=== PATIENT | male | born 2000 | race Caucasian/White ===

== ENCOUNTER → 2020-10-13 02:54 | Outpatient (CLI) | payer BC, SELFPAY ==
[2020-10-13 23:33] LABS: SARS-CoV-2 RNA PCR Negative
== END ==
PROVIDERS: PCP Internal Medicine; Visit Provider Surgery
DX: Z01.812 Encounter for preprocedural laboratory examination (principal); Z20.822 Contact with and (suspected) exposure to COVID-19
CPT/HCPCS: C9803; U0003; U0005

== ENCOUNTER 2020-10-16 02:21 | Day surgery (SDC) | payer BC, SELFPAY ==
[2020-10-12 13:40] VITALS: BMI 20.4
--- NOTE | 2020-10-15 16:06 | WPDANESEPPF ---
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 Patient Data Age: 20 Gender: M Height: 1.75 m Weight: 62.72 kg Allergies Allergy/AdvReac Type Severity Reaction Status Date / Time sulfamethoxazole Allergy Mild eye Verified 10/16/20 11:37 [From Bactrim] itching, fevers, body achs, and nausea trimethoprim [From Bactrim] Allergy Mild eye Verified 10/16/20 11:37 itching, fevers, body achs, and nausea cefdinir Allergy Unknown Hives Verified 10/16/20 11:37 Home Medications Medication Instructions Recorded Confirmed Type No Home Medications 09/25/20 10/16/20 History Patient hx anesthesia problems: none Family hx anesthesia problems: none PMFSH Past Medical History Medical History BMI 20.0-20.9, adult Encounter for annual general medical examination without abnormal findings in adult Encounter to establish care Family history of thyroid cancer History of anxiety History of fracture of right ankle Internal hemorrhoid Screening for diabetes mellitus Thrombosed hemorrhoids Surgical History Surgical History History of incision and drainage perirectal abscess 09/10/20 History of placement of ear tubes History of wisdom tooth extraction Hx of tonsillectomy 2009 Family History Family History Father Thyroid cancer Social History Social History Smoking status: Current every day smoker Tobacco type: e-cigarettes/vaping Additional smoking assessment comments: STATES E-CIGARETTES/VAPING 8 YRS Alcohol intake: never Substance use: never Substance use type: does not use Living arrangements: with family Spiritual care concerns: No Anes - Eval Final PreProcedure Day of Procedure 10/15/20 16:06 Patient weight: normal Heart: regular rate and rhythm Lungs: clear to auscultation and normal air movement Airway: Mallampati scale class II Neurological: alert and oriented Last oral intake: >/= 8 hours ASA classification: II Emergent: no Anesthetic plan: proceed Anesthesia type and monitoring: general ETT Informed Consent: The patient's anesthetic plan and its attendant risks and benefits were discussed with the patient/family/POA. Questions were solicited and answers provided to the satisfaction of the patient/family/POA.
[2020-10-16] VITALS (9 sets, daily range): BP systolic 95–123; BP diastolic 41–83; PULSE 57–82; RESP 12–20; TEMP 36.2–36.9; O2SAT 99–100
[2020-10-16] MEDS: LACTATED RINGERS 1,000 ML 30 ML IV CONT ×2 (11:20→15:05)
[2020-10-16] MEDS: ACETAMINOPHEN 500 MG TABLET 1000 MG PO (11:43)
[2020-10-16] MEDS: KETOROLAC 15 MG/ML VIAL (*BKC) IV PUSH (12:48)
--- NOTE | 2020-10-16 14:10 | WPDHPUPDATE1 ---
History and Physical Update Update Date/Time: 10/16/20 14:10 History and Physical has been reviewed, including an updated exam of the patient. There are NO changes in the patient's condition. Risks, benefits, and alternatives have been discussed and questions answered. Patient agrees to proceed with procedure.
[2020-10-16] MEDS: CLINDAMYCIN 900 MG/D5W 50 ML 900 MG/50 ML PIGGYBACK 50 MG IVPB (14:24)
--- NOTE | 2020-10-16 15:04 | P.OP_ITS ---
Procedure Note - Detailed Date of procedure: 10/16/20 Pre-op diagnosis: Fistula In Ano Post-op diagnosis: same Procedure performed: Rectal exam under anesthesia with intersphincteric anal fistulotomy Description of procedure: * Procedure as well as risks, benefits, and alternatives were discussed with the patient. Written consent was obtained and placed in chart prior to procedure. Patient was brought back to surgical suite. He was placed supine in his hospital stretcher. Time-out was done to confirm patient and procedure. He was then intubated by the anesthesia department. He was then repositioned into prone cele-knife position. His perirectal area was prepped and draped in sterile fashion using Betadine prep. Digital rectal exam was initially performed. A Hill-Villaseñor anoscope was inserted and the anal rectal canal was carefully inspected. No immediate abnormalities were noted. The left anterior perianal skin fistula opening was identified and this was probed with a small lacrimal probe. This advanced along the left lateral perianal skin more posteriorly towards the posterior midline. I continued to follow this with the probe and had to open up the incision along this fistula tract along the way to allow for the curved tract to reach the midline. The probe was continued to be advanced along the fistula tract, and eventually I was able to identify the internal opening in the posterior midline. The entire tract was then opened up using a 15 blade scalpel over the skin and then electrocautery through the subcu space. The fistula tract appeared to go through a few sphincter muscle fibers but was very shallow and did not appear to be transsphincteric. Once the fistula tract was completely opened, I cleaned out any chronic granulation tissue with electrocautery and irrigation. One final inspection was made around the area and no other abnormalities were noted. Exparel was infiltrated locally around the entire area. The anoscope was then removed. Xeroform gauze was applied over the incision followed by 4 x 4 gauze and mesh underwear. The patient was then awakened from anesthesia, extubated, and transferred to recovery. Anesthesia: GETA and local (Exparel) Surgeon: Darian Schilling DO Estimated blood loss (mL): 5 Pathology: none sent Complications: No immediate complications Condition: stable Disposition: same day Findings: This is a 20-year-old man who presented with an anal fistula. He initially presented a couple months ago with a perirectal abscess. Incision and drainage was performed in the office and he seemed to improve from this. As he healed, the wound never completely closed and he continued to have intermittent drainage. Discussions were made with the patient that he likely has an anal fistula, and decision was made to proceed with rectal exam under anesthesia with possible anal fistulotomy. Rectal exam under anesthesia was performed. In the left anterior location there was a perianal skin opening from the fistula tract. The probe was inserted through the skin opening and this appeared advanced along the lateral perianal skin. As I tracked this more posteriorly it appeared to bend towards the midline. In the posterior midline it appeared to enter into the anal canal through a small opening. The tract was carefully inspected and appeared to be intersphincteric and did not appear to involve full-thickness sphincter muscle fibers. The incision was carried out over the fistula tract to open it up. This was a relatively long tract measuring about 4 cm, but it appeared to be shallow. No specimens were obtained for pathology. No other perirectal abnormalities were noted.
== END 2020-10-16 17:05 | disposition home or self-care (01) ==
PROVIDERS: PCP Internal Medicine; Visit Provider Surgery
PROC: (CPT 46275; principal; 2020-10-16 13:30)
DX: K60.3 Anal fistula (principal); F17.290 Nicotine dependence, other tobacco product, uncomplicated
CPT/HCPCS: 46275; A9270; C9290; J0330; J1100; J1885; J2250; J2405; J2704; J3010; J7120

== ENCOUNTER → 2021-04-05 02:34 | Outpatient (CLI) | payer BC, SELFPAY ==
[2021-04-05 12:37] LABS: Influenza Control Positive
[2021-04-05 20:12] LABS: SARS-CoV-2 RNA PCR Positive
== END ==
PROVIDERS: PCP Internal Medicine; Visit Provider Internal Medicine
DX: R68.89 Other general symptoms and signs (principal); U07.1 COVID-19
CPT/HCPCS: 36415; 87804; C9803; U0003; U0005

== ENCOUNTER 2021-04-25 16:28 | Outpatient (CLI) | payer BC, SELFPAY ==
--- NOTE | ~2021-04-25 | XR_ITS ---
EXAMINATION: XR chest 2V 04/25/2021 16:50 INDICATION: Shortness of breath and cough PROCEDURE: 2 view chest COMPARISON: No prior studies for comparison. FINDINGS: The lungs are clear. The cardiomediastinal silhouette is within normal limits. There are no pleural effusions. There is no pneumothorax suspected. IMPRESSION: 1: NO ACUTE CARDIOPULMONARY DISEASE. Reviewed, dictated and finalized at location A.
[2021-04-25 16:57] LABS: Basophils Percent Auto 0.5 % (0.2-1.2); Eosinophils Absolute Auto 0.2 K/mm3 (0-0.3); Eosinophils Percent Auto 3.2 % (0-4.4); Hematocrit 43.7 % (42.0-52.0); Hemoglobin 14.8 g/dL (14.0-18.0); Immature Granulocyte Absolute 0.05 K/mm3 (0.00-0.031); Immature Granulocyte Percent A 0.9 % (0-0.5); Lymphocytes Absolute Auto 1.07 K/mm3 (0.9-3.2); Lymphocytes Percent Auto 18.3 % (18.3-44.2); Mean Corpuscular HGB Conc 33.9 g/dl (32-36); Mean Corpuscular Hemoglobin 29.9 pg (26-34); Mean Corpuscular Volume 88.3 fl (80-100); Mean Platelet Volume 10.9 fl (7.4-10.4); Monocytes Absolute Auto 0.8 K/mm3 (0.1-0.6); Monocytes Percent Auto 14.3 % (2.6-8.5); Neutrophils Absolute Auto 3.7 K/mm3 (1.3-6.7); Neutrophils Percent Auto 62.8 % (45.5-73.1); Platelet Count Result 162 k/mm3 (150-375); Red Blood Count 4.95 M/mm3 (4.6-6.20); Red Cell Distribution Width 12.1 % (11.5-14.5); White Blood Count 5.9 K/mm3 (4.5-10.0)
== END 2021-04-25 16:29 | disposition home or self-care (01) ==
LOC: ANHLAB 16:31
PROVIDERS: PCP Internal Medicine; Visit Provider Internal Medicine
DX: R06.02 Shortness of breath (principal); R05 Cough
CPT/HCPCS: 36415; 71046; 85025

== ENCOUNTER 2021-04-26 09:02 | Outpatient (CLI) | payer BC, SELFPAY ==
[2021-04-26 09:55] LABS: Influenza Control Positive
== END 2021-04-26 09:03 | disposition home or self-care (01) ==
PROVIDERS: PCP Internal Medicine; Visit Provider Internal Medicine
DX: R05 Cough (principal); R11.2 Nausea with vomiting, unspecified; R52 Pain, unspecified; R06.02 Shortness of breath
CPT/HCPCS: 87804

== ENCOUNTER 2021-07-10 11:14 | Outpatient (CLI) | payer BC, SELFPAY ==
[2021-07-10 12:30] LABS: Basophils Percent Auto 0.6 % (0.2-1.2); Eosinophils Absolute Auto 0.4 K/mm3 (0-0.3); Eosinophils Percent Auto 7.5 % (0-4.4); Hematocrit 42.9 % (42.0-52.0); Hemoglobin 14.7 g/dL (14.0-18.0); Immature Granulocyte Absolute 0.04 K/mm3 (0.00-0.031); Immature Granulocyte Percent A 0.7 % (0-0.5); Lymphocytes Absolute Auto 1.54 K/mm3 (0.9-3.2); Lymphocytes Percent Auto 28.8 % (18.3-44.2); Mean Corpuscular HGB Conc 34.3 g/dl (32-36); Mean Corpuscular Hemoglobin 30.7 pg (26-34); Mean Corpuscular Volume 89.6 fl (80-100); Mean Platelet Volume 11.4 fl (7.4-10.4); Monocytes Absolute Auto 0.4 K/mm3 (0.1-0.6); Monocytes Percent Auto 7.1 % (2.6-8.5); Neutrophils Percent Auto 55.3 % (45.5-73.1); Platelet Count Result 166 k/mm3 (150-375); Red Blood Count 4.79 M/mm3 (4.6-6.20); Red Cell Distribution Width 12.2 % (11.5-14.5); White Blood Count 5.4 K/mm3 (4.5-10.0)
[2021-07-10 12:47] LABS: Alanine Aminotransferase 11 U/L (4-50); Albumin Level 4.9 g/dL (3.5-5.1); Alkaline Phosphatase 62 U/L (38-126); Amylase 57 U/L (30-110); Anion Gap 10 mmol/L (8-16); Aspartate Amino Transferase 20 U/L (17-59); Bilirubin,Total 0.9 mg/dL (0.2-1.3); Blood Urea Nitrogen 16 mg/dL (9-20); Calcium 9.7 mg/dL (8.4-10.2); Carbon Dioxide 27 mmol/L (22-30); Chloride 101 mmol/L (98-107); Estimated Glomerular Filt Rate > 60; Glucose 92 mg/dL (65-110); Lipase 36 U/L (23-300); Potassium 4.5 mmol/L (3.4-5.0); Sodium 138 mmol/L (137-145)
== END 2021-07-10 11:15 | disposition home or self-care (01) ==
LOC: ANHLAB 11:16
PROVIDERS: PCP Internal Medicine; Visit Provider Internal Medicine
DX: R11.0 Nausea (principal); R10.9 Unspecified abdominal pain
CPT/HCPCS: 36415; 80053; 82150; 83690; 85025

== ENCOUNTER 2021-07-17 08:33 | Outpatient (CLI) | payer BC, SELFPAY ==
--- NOTE | ~2021-07-17 | XR_ITS ---
EXAMINATION: XR UGI w barium swallow EXAM DATE: 07/17/2021 09:21 INDICATION: Several weeks of nausea in the mornings. TECHNIQUE: Standard single and double contrast barium esophagram and upper GI examination was perform ed by radiologist Estiven Middleton M.D. Pulsed dose reduction fluoroscopy was used with fluoroscopic time of 0.8. The DAP for this procedure was 0.9 Gycm2. A total of 111 images obtained for the exam. Th ere is no prior study for comparison. At the end of exam I offered to answer any questions regarding COVID vaccinations. FINDINGS: The pharynx is symmetric and without evidence of mass lesion or mucosal irregularity. Ther e is no esophageal stricture, diverticulum or mass identified. Gastroesophageal junction is normal i n appearance. Reflux was not demonstrated during this examination. The stomach has a normal appearance without evidence of mass lesion, ulceration or filling defect. T here is normal rugal fold pattern. The duodenum and duodenal sweep are normal in appearance. IMPRESSION: Normal exam. Reviewed, dictated and finalized at location A. [employer] ENG[employer] IMPRESSION: Normal exam.
== END 2021-07-17 08:34 | disposition home or self-care (01) ==
LOC: ANHIMG 08:34
PROVIDERS: PCP Internal Medicine; Visit Provider Internal Medicine
DX: R10.9 Unspecified abdominal pain (principal); R11.0 Nausea
CPT/HCPCS: 74240

== ENCOUNTER → 2021-08-03 00:42 | Outpatient (CLI) | payer BC, SELFPAY ==
[2021-08-03 18:47] LABS: SARS-CoV-2 RNA PCR Negative (Negative)
== END ==
PROVIDERS: PCP Internal Medicine; Visit Provider Internal Medicine Gastroenterology
DX: Z01.812 Encounter for preprocedural laboratory examination (principal); Z20.822 Contact with and (suspected) exposure to COVID-19
CPT/HCPCS: C9803; U0003; U0005

== ENCOUNTER 2021-08-07 00:38 | Day surgery (SDC) | payer BC, SELFPAY ==
[2021-07-26 13:43] VITALS: BMI 18.7
--- NOTE | 2021-08-06 13:40 | PM.HPGS ---
History of Present Illness History of Present Illness Consent: Risks, benefits, and alternatives have been discussed and questions answered. Patient agrees to proceed with procedure. 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 For several weeks he felt gagging when he would try to eat. In the lowers during the meal he would have nausea that would make it feel like it was difficult to swallow. Review of Systems Review of Systems: All systems reviewed & are unremarkable except as noted in HPI and below PMFSH Past Medical History Medical History Adult BMI 19-24 kg/sq m BMI 20.0-20.9, adult Body aches Body mass index (BMI) less than 19 Cellulitis of knee, right Dysphagia Encounter for annual general medical examination without abnormal findings in adult Encounter to establish care Family history of thyroid cancer History of anxiety History of fracture of right ankle Insomnia Internal hemorrhoid Nausea Nausea Personal history of COVID-19 Screening for diabetes mellitus Thrombosed hemorrhoids Weight loss Surgical History Surgical History History of incision and drainage perirectal abscess 09/10/20 History of placement of ear tubes History of rectal surgery 10/16/20 Rectal exam under anesthesia with intersphincteric anal fistulotomy History of wisdom tooth extraction Hx of tonsillectomy 2009 Family History Family History Father Thyroid cancer Social History Social History Smoking status: Current every day smoker Tobacco type: e-cigarettes/vaping Additional smoking assessment comments: STATES E-CIGARETTES/VAPING 8 YRS Alcohol intake: never Substance use: former Substance use type: marijuana Living arrangements: with family Spiritual care concerns: No Meds Home Medications and Allergies Home Medications Medication Instructions Recorded Confirmed Type No Home Medications 07/10/21 08/07/21 History Allergies Allergy/AdvReac Type Severity Reaction Status Date / Time sulfamethoxazole Allergy Mild eye Verified 08/07/21 12:31 [From Bactrim] itching, fevers, body achs, and nausea trimethoprim [From Bactrim] Allergy Mild eye Verified 08/07/21 12:31 itching, fevers, body achs, and nausea cefdinir Allergy Unknown Hives Verified 08/07/21 12:31 diphenhydramine AdvReac Hyperactive Verified 08/07/21 12:31 [From Benadryl] Exam Const: General: alert Orientation/consciousness: patient oriented x3 Resp: Auscultation: clear to auscultation bilaterally Cardio: Rhythm: regular rhythm GI: GI Palp: Yes Soft to palpation and No Tenderness to palpation present (GI) Neuro: General: patient oriented x3 Assessment and Plan Assessment and plan (1) Dysphagia: Code(s): R13.10 - Dysphagia, unspecified Status: Acute Assessment and Plan: EGD with possible biopsy or dilatation or cautery.
[2021-08-07 12:32] VITALS: BP 116/74; PULSE 77; RESP 14; TEMP 36.3; O2SAT 99; BMI 18.0
[2021-08-07] MEDS: LACTATED RINGERS 1,000 ML 150 ML IV CONT (12:44)
--- NOTE | 2021-08-07 13:08 | WPDANESEPPF ---
Anes - Initial Pre Proc Eval Procedure: Operation Date: 08/07/21 13:30 Proposed Procedures p Esophagogastroduodenoscopy - Shashank Corea MD Date/Time: 08/07/21 13:08 Surgeon: Shashank Corea MD Pre Op Diagnosis: nausea, weight loss, dysphagia Patient Data Age: 20 Gender: M Height: 1.73 m Weight: 53.9 kg Last Vital Signs Temp 97.4 F L 08/07/21 12:32 Pulse 77 08/07/21 12:32 Resp 14 08/07/21 12:32 BP 116/74 08/07/21 12:32 Pulse Ox 99 08/07/21 12:32 Allergies Allergy/AdvReac Type Severity Reaction Status Date / Time sulfamethoxazole Allergy Mild eye Verified 08/07/21 12:31 [From Bactrim] itching, fevers, body achs, and nausea trimethoprim [From Bactrim] Allergy Mild eye Verified 08/07/21 12:31 itching, fevers, body achs, and nausea cefdinir Allergy Unknown Hives Verified 08/07/21 12:31 diphenhydramine AdvReac Hyperactive Verified 08/07/21 12:31 [From Benadryl] Home Medications Medication Instructions Recorded Confirmed Type No Home Medications 07/10/21 08/07/21 History Patient hx anesthesia problems: none Family hx anesthesia problems: none Results Review: All pre-operative results and documents have been reviewed as part of the pre-operative evaluation. [facility] Past Medical History Medical History (Updated 07/24/21 @ 13:12 by Rosalie Marin) Adult BMI 19-24 kg/sq m BMI 20.0-20.9, adult Body aches Body mass index (BMI) less than 19 Cellulitis of knee, right Dysphagia Encounter for annual general medical examination without abnormal findings in adult Encounter to establish care Family history of thyroid cancer History of anxiety History of fracture of right ankle Insomnia Internal hemorrhoid Nausea Nausea Personal history of COVID-19 Screening for diabetes mellitus Thrombosed hemorrhoids Weight loss Surgical History Surgical History History of incision and drainage perirectal abscess 09/10/20 History of placement of ear tubes History of rectal surgery 10/16/20 Rectal exam under anesthesia with intersphincteric anal fistulotomy History of wisdom tooth extraction Hx of tonsillectomy 2009 Family History Family History Father Thyroid cancer Social History Social History Smoking status: Current every day smoker Tobacco type: e-cigarettes/vaping Additional smoking assessment comments: STATES E-CIGARETTES/VAPING 8 YRS Alcohol intake: never Substance use: former Substance use type: marijuana Living arrangements: with family Spiritual care concerns: No Anes - Eval Final PreProcedure Day of Procedure 08/07/21 13:08 Patient weight: normal Heart: regular rate and rhythm Lungs: clear to auscultation Airway: Mallampati scale class II Neurological: alert and oriented Last oral intake: >/= 8 hours ASA classification: II Emergent: no Anesthetic plan: proceed Anesthesia type and monitoring: general GIVS and standard monitoring Results Review: All pre-operative results and documents have been reviewed as part of the pre-operative evaluation. Informed Consent: The patient's anesthetic plan and its attendant risks and benefits were discussed with the patient/family/POA. Questions were solicited and answers provided to the satisfaction of the patient/family/POA.
[2021-08-07] MEDS: SIMETHICONE ORAL SUSPENSION 20 MG/0.3 ML 30 ML BOTTLE 0.6 ML IRRIGATION (13:23)
[2021-08-07 13:29] VITALS: BP 99/51; PULSE 67; RESP 19; O2SAT 98
[2021-08-07 13:39] VITALS: BP 105/71; PULSE 69; RESP 21; O2SAT 100
[2021-08-07 13:49] VITALS: BP 114/68; PULSE 61; RESP 17; O2SAT 100
== END 2021-08-07 13:58 | disposition home or self-care (01) ==
PROVIDERS: PCP Internal Medicine; Visit Provider Internal Medicine Gastroenterology
PROC: 0DJ08ZZ Inspection of Upper Intestinal Tract, Via Natural or Artificial Opening Endoscopic (ICD-10-PCS; CPT 43235; principal; 2021-08-07 13:30)
DX: R13.10 Dysphagia, unspecified (principal); R11.0 Nausea; R63.4 Abnormal weight loss; F41.9 Anxiety disorder, unspecified; F17.290 Nicotine dependence, other tobacco product, uncomplicated
CPT/HCPCS: 43239; 87081; 88305; J2704; J7120

== ENCOUNTER → 2021-08-14 09:31 | Outpatient (CLI) | payer BC, SELFPAY ==
[2021-08-14 14:06] LABS: Influenza Control Positive
[2021-08-14 21:06] LABS: SARS-CoV-2 RNA PCR Negative
== END ==
PROVIDERS: PCP Internal Medicine; Visit Provider Internal Medicine
DX: R50.9 Fever, unspecified (principal); R51.9 Headache, unspecified; J02.9 Acute pharyngitis, unspecified; J34.89 Other specified disorders of nose and nasal sinuses; Z20.822 Contact with and (suspected) exposure to COVID-19
CPT/HCPCS: 87804; C9803; U0003; U0005

== ENCOUNTER 2022-02-05 15:51 | Outpatient (CLI) | payer BC, SELFPAY ==
--- NOTE | ~2022-02-05 | XR_ITS ---
XR elbow LT 2V DATE: 02/05/2022 16:05 INDICATION: Pain and stiffness of left elbow. No known injury. TECHNIQUE: AP and lateral views COMPARISON: None FINDINGS: No fracture or dislocation, joint effusion, periosteal reaction or bone destruction or join t space narrowing. IMPRESSION: Negative Reviewed, dictated and finalized at location A. IMPRESSION: Negative
== END 2022-02-05 15:52 | disposition home or self-care (01) ==
LOC: ANHIMG 15:53
PROVIDERS: PCP Internal Medicine; Visit Provider Internal Medicine
DX: M25.522 Pain in left elbow (principal)
CPT/HCPCS: 73070

== ENCOUNTER 2023-06-04 18:34 | Emergency (ER) | payer BC, SELFPAY ==
--- NOTE | ~2023-06-04 | XR_ITS ---
EXAMINATION: XR ankle LT min 3V DATE: 06/04/2023 18:47 INDICATION: Left ankle pain TECHNIQUE: Anteroposterior, lateral, mortise, and additional oblique view of the ankle were obtained. COMPARISON: 05/26/2013 FINDINGS: Bone alignment is normal. There is no fracture. There is soft tissue swelling of ankle. IMPRESSION: 1. Soft tissue swelling without acute osseous abnormality. Reviewed, dictated and finalized at location F.
[2023-06-04 18:37] VITALS: BP 136/73; PULSE 90; RESP 18; TEMP 36.6; O2SAT 100
--- NOTE | 2023-06-04 20:43 | ED.GENADULT ---
HPI - General Adult General Chief complaint: Extremity Injury, Lower Stated complaint: L ankle swollen Time Seen by Provider: 06/04/23 19:55 Source: patient Mode of arrival: ambulatory Limitations: no limitations History of Present Illness HPI narrative: This is a 22-year-old male who presents to the ED with chief complaint of a left ankle injury that occurred several hours prior to arrival. Patient states he was walking across a parking lot and stepped over a concrete parking block. Reports there was somewhat on the other side that he did not see and this caused him to roll the ankle. Reports difficulty with weightbearing directly after. Denies any further site of pain or injury. Denies numbness or weakness. Related Data Allergies Allergy/AdvReac Type Severity Reaction Status Date / Time sulfamethoxazole Allergy Mild eye Verified 06/01/23 09:36 [From Bactrim] itching, fevers, body achs, and nausea trimethoprim [From Bactrim] Allergy Mild eye Verified 06/01/23 09:36 itching, fevers, body achs, and nausea cefdinir Allergy Unknown Hives Verified 06/01/23 09:36 diphenhydramine AdvReac Hyperactive Verified 06/01/23 09:36 [From Benadryl] Review of Systems Review of Systems: All systems as dictated in [facility] Past Medical History Medical History (Updated 06/05/23 @ 00:01 by Azael Natarajan) Adult BMI 19-24 kg/sq m BMI 20.0-20.9, adult BMI 25.0-25.9,adult Body aches Body mass index (BMI) less than 19 Cellulitis of knee, right Cough Dysphagia Encounter for annual general medical examination without abnormal findings in adult Encounter to establish care Family history of thyroid cancer Fever Headache History of anxiety History of fracture of right ankle Insomnia Internal hemorrhoid Nausea Nausea Personal history of COVID-19 Screening for diabetes mellitus Sinus drainage Sore throat Thrombosed hemorrhoids Weight loss Surgical History Surgical History History of incision and drainage perirectal abscess 09/10/20 History of placement of ear tubes History of rectal surgery 10/16/20 Rectal exam under anesthesia with intersphincteric anal fistulotomy History of wisdom tooth extraction Hx of tonsillectomy 2009 Family History Family History Father Thyroid cancer Social History Social History Smoking status: Current some day smoker Tobacco type: e-cigarettes/vaping Additional smoking assessment comments: STATES E-CIGARETTES/VAPING 8 YRS Alcohol intake: never Substance use: former Substance use type: marijuana Living arrangements: with family Spiritual care concerns: No Exam Narrative: GENERAL: Well-appearing, well-nourished, and in no acute distress. HEAD: Normocephalic, atraumatic. EYES: PERRLA and EOMI. ENT: Nares clear, no rhinorrhea or epistaxis. Mucous membranes moist. Oropharynx without tonsillar hypertrophy exudate or other lesions. NECK: Supple. No adenopathy or masses. CHEST: No respiratory distress. Clear to auscultation. No wheezes rales or rhonchi HEART: Regular rate and rhythm. No murmur heard. Normal peripheral pulses. ABDOMEN: Soft, nontender, nondistended, normal active bowel sounds. MSK: Mild swelling to the left ankle. Mild tenderness to the ankle. No bruising. No crepitus. Soft compartments. Neurovascular intact distally. SKIN: Warm, dry, no rash. NEURO: Alert and oriented x3. No focal deficits. PSYCH: Normal mood and affect. Course Vital Signs Vital signs: Vital Signs Temperature 98 F 06/04/23 18:37 Pulse Rate 90 06/04/23 18:37 Respiratory Rate 18 06/04/23 18:37 Blood Pressure 136/73 06/04/23 18:37 Pulse Oximetry 100 06/04/23 18:37 Oxygen Delivery Room Air 06/04/23 18:37 Temperature 98 F 06/04/23 18:37
== END 2023-06-04 21:05 | disposition home or self-care (01) ==
PROVIDERS: Emergency Provider Physician Assistant; PCP Internal Medicine
DX: S93.402A Sprain of unspecified ligament of left ankle, initial encounter (principal); F17.290 Nicotine dependence, other tobacco product, uncomplicated; Z86.16 Personal history of COVID-19; X50.9XXA Other and unspecified overexertion or strenuous movements or postures, initial encounter
CPT/HCPCS: 73610; 99283

== ENCOUNTER 2023-06-29 12:32 | Outpatient (CLI) | payer BC, SELFPAY ==
--- NOTE | ~2023-06-29 | MR_ITS ---
MRI of the left ankle Clinical history: Injury Technique: Coronal proton-density and proton-density fat-sat images, axial proton-density and proton- density fat-sat images, and sagittal proton-density and proton-density fat-sat images were acquired. Findings: Syndesmotic ligaments are intact. There is marked thickening, increased signal, and poor de finition of the anterior talofibular ligament, with additional increased signal in somewhat poor defi nition of the calcaneofibular ligament. Posterior talofibular ligament is intact. Deltoid ligament is intact. Medial flexor tendons, peroneal tendons, anterior extensor tendons, and Achilles tendon are intact. There is no osteochondral lesion of the talar dome. There is focal marrow edema at the inferior talar head and at the lateral aspect of the navicular bone. Remaining bone marrow signals are unremarkable . Joint spaces are preserved. Small tibiotalar joint effusion is present. Plantar fascia is intact. Normal signal preserved in the sinus Tarsi. No other soft tissue mass or fluid collection seen. Impression: Acute moderate to high-grade sprain of the lateral ankle, with thickening and increased signal of the anterior talofibular and calcaneofibular ligaments. Focal marrow edema at the talar head and navicular, which could reflect bone contusions. Reviewed, dictated and finalized at location M. [employer] Impression: Acute moderate to high-grade sprain of the lateral ankle, with thickening and i ncreased signal of the anterior talofibular and calcaneofibular ligaments. Focal marrow edema at the talar head and navicular, which could reflect bone co ntusions.
== END 2023-06-29 12:33 | disposition home or self-care (01) ==
PROVIDERS: PCP Internal Medicine; Visit Provider Internal Medicine
DX: M25.472 Effusion, left ankle (principal); M25.60 Stiffness of unspecified joint, not elsewhere classified; S93.492A Sprain of other ligament of left ankle, initial encounter
CPT/HCPCS: 73721